=== PATIENT | male | born 1980 | race Caucasian/White ===

== ENCOUNTER 2018-04-22 15:31 | Emergency (ER) | payer SELFPAY ==
--- NOTE | 2018-04-22 17:36 | UC ---
General HPI - HPI Summary HPI Summary: Pt reports that on 04/21/18 around 9pm while driving up from [place], he felt his heart racing. He had some nausea. His fitbit read HR 140's for about 5 minutes, then his HR went down to 110 for a few hours, HR returned to normal around 11:30pm and has remained normal since then; pt denies any chest pain, shortness of breath, fainting or near fainting. Denies hx drug use and caffeine use is minimal. Does not take decongestants. No hx HTN, DM, high cholesterol, heart or lung dz. No leg pain or calf edema. - History of Current Complaint Chief Complaint: UCGeneralIllness Stated Complaint: HEART RATE CONCERN FROM LAST NIGHT Time Seen by Provider: 04/22/18 17:30 Hx Obtained From: Patient Pain Intensity: 0 Associated Signs & Symptoms: Positive: Palpitations. Negative: Back Pain, Chest Pain, SOB, Wheezing - Allergy/Home Medications Allergies/Adverse Reactions: Allergies Allergy/AdvReac Type Severity Reaction Status Date / Time Penicillins Allergy Intermediate Rash Verified 04/22/18 15:54 Home Medications: Home Medications NK [No Home Medications Reported] 04/22/18 [History Confirmed 04/22/18] PMH/Surg Hx/FS Hx/Imm Hx Previously Healthy: Yes - Surgical History Surgical History: None - Family History Known Family History: Positive: Cardiac Disease - Social History Lives: With Family Alcohol Use: Rare Substance Use Type: None Smoking Status (MU): Never Smoked Tobacco Review of Systems All Other Systems Reviewed And Are Negative: Yes Constitutional: Positive: Negative Skin: Positive: Negative Eyes: Positive: Negative ENT: Positive: Negative Respiratory: Positive: Negative Cardiovascular: Positive: Palpitations Gastrointestinal: Positive: Negative Genitourinary: Positive: Negative Motor: Positive: Negative Neurovascular: Positive: Negative Musculoskeletal: Positive: Negative Neurological: Positive: Negative Psychological: Positive: Negative Physical Exam Triage Information Reviewed: Yes Appearance: Well-Appearing Vital Signs: Initial Vital Signs Temp 98.1 F 04/22/18 15:47 Pulse 86 04/22/18 15:47 Resp 17 04/22/18 15:47 BP 145/66 04/22/18 15:47 Pulse Ox 99 04/22/18 15:47 Vital Signs Reviewed: Yes Eyes: Positive: Conjunctiva Clear ENT: Positive: Normal ENT inspection Neck: Positive: Supple, Nontender, No Lymphadenopathy Respiratory: Positive: Lungs clear, Normal breath sounds, No respiratory distress Cardiovascular: Positive: RRR, No Murmur Abdomen Description: Positive: Nontender Bowel Sounds: Positive: Present Musculoskeletal: Positive: ROM Intact, No Edema Neurological: Positive: Alert Psychological: Positive: Age Appropriate Behavior Skin Exam: Normal Diagnostics - EKG Cardiac Rate: NL Cardiac Rhythm: Sinus: Normal Ectopy: None ST Segment: Normal Course/Dx - Course Course Of Treatment: pt agrees to f/u PCP on LI and go to nearest ER for any recurrent s/s's - Differential Dx - Multi-Symptom Differential Diagnoses: Other - no current s/s's. no arrythmia on ekg. no risk for premature CAD. No concern for PE. - Diagnoses Provider Diagnosis: Palpitations Discharge - Sign-Out/Discharge Documenting (check all that apply): Patient Departure All imaging exams completed and their final reports reviewed: No Studies - Discharge Plan Condition: Stable Disposition: HOME Patient Education Materials: Heart Palpitations (ED) Referrals: No Primary Care Phys,NOPCP [Primary Care Provider] - Additional Instructions: FOLLOW UP WITH YOUR PRIMARY CARE ON [facility] [address] WHEN YOU RETURN HOME THIS TUESDAY. GO TO THE NEAREST ER FOR ANY RECURRENT SYMPTOMS. - Billing Disposition and Condition Condition: STABLE Disposition: Home
== END 2018-04-22 17:55 | disposition home or self-care (01) ==
LOC: UCCORT 15:31
DX: R00.2 Palpitations (principal); R11.0 Nausea; Z88.0 Allergy status to penicillin
CPT/HCPCS: 93005; 99201; G0463